=== PATIENT | female | born 1985 | race Two or more races ===

== ENCOUNTER 2023-04-26 10:39 | Inpatient (IN) | payer OTHER ==
[~2023-04-26] VITALS: Ht 157.5 cm; Wt 2.7 kg
[~2023-04-26 10:39] MED LIST: IRON240 MG PO; PRENATABS RX T1 EACH PO
== END 2023-04-29 12:04 | disposition home or self-care (01) | DRG 788 ==
LOC: EDBD → OB/GYN → LDR 10:39 → OB/GYN 15:21
PROVIDERS: ADMIT Obstetrics & Gynecology; ATTEND Obstetrics & Gynecology
PROC: 4A1HXCZ Monitoring of Products of Conception, Cardiac Rate, External Approach (ICD-10-PCS; 2023-04-26)
PROC: 10D00Z1 Extraction of Products of Conception, Low, Open Approach (ICD-10-PCS; principal; 2023-04-26 14:00)
DX: O62.1 Secondary uterine inertia (principal); O32.6XX0 Maternal care for compound presentation, not applicable or unspecified; O36.8130 Decreased fetal movements, third trimester, not applicable or unspecified; Z3A.37 37 weeks gestation of pregnancy; Z37.0 Single live birth; Z20.822 Contact with and (suspected) exposure to COVID-19

== ENCOUNTER 2023-06-10 12:05 | Outpatient (CLI) | payer OTHER | END 2023-06-10 12:10 | disposition home or self-care (01) | LOC: SONOGRAMA 12:05 | PROVIDERS: ATTEND Obstetrics & Gynecology | DX: N63.12 Unspecified lump in the right breast, upper inner quadrant (principal); N63.21 Unspecified lump in the left breast, upper outer quadrant ==

== ENCOUNTER → 2023-06-13 16:51 | Outpatient (CLI) | payer OTHER | END | disposition home or self-care (01) | LOC: LAB 16:51 | PROVIDERS: ATTEND Surgery | DX: N61.0 Mastitis without abscess (principal); N61.1 Abscess of the breast and nipple ==

== ENCOUNTER 2023-06-18 13:12 | Outpatient (CLI) | payer OTHER | END 2023-06-18 13:32 | disposition home or self-care (01) | LOC: SONOGRAMA 13:12 | PROVIDERS: ATTEND Surgery | DX: N61.1 Abscess of the breast and nipple (principal) ==

== ENCOUNTER 2023-06-20 13:56 | Outpatient (CLI) | payer OTHER | END 2023-06-20 14:07 | disposition home or self-care (01) | LOC: SONOGRAMA 13:56 | PROVIDERS: ATTEND Surgery | DX: N61.1 Abscess of the breast and nipple (principal) ==

== ENCOUNTER 2023-06-20 16:33 | Outpatient (CLI) | payer OTHER | END 2023-06-20 16:46 | disposition home or self-care (01) | LOC: LAB 16:33 | PROVIDERS: ATTEND Surgery | DX: N61.1 Abscess of the breast and nipple (principal) ==

== ENCOUNTER → 2023-07-04 15:17 | Outpatient (CLI) | payer OTHER | END | disposition home or self-care (01) | LOC: LAB 15:17 | PROVIDERS: ATTEND Surgery | DX: N61.1 Abscess of the breast and nipple (principal) ==

== ENCOUNTER 2023-07-11 13:51 | Outpatient (CLI) | payer OTHER | END 2023-07-11 14:07 | disposition home or self-care (01) | LOC: SONOGRAMA 13:51 | PROVIDERS: ATTEND Surgery | DX: N61.1 Abscess of the breast and nipple (principal) ==

== ENCOUNTER 2023-08-01 14:14 | Outpatient (CLI) | payer OTHER | END 2023-08-01 14:36 | disposition home or self-care (01) | LOC: SONOGRAMA 14:14 | PROVIDERS: ATTEND Surgery | DX: N61.0 Mastitis without abscess (principal); N61.1 Abscess of the breast and nipple ==

== ENCOUNTER 2023-08-20 12:00 | Outpatient (CLI) | payer OTHER | END 2023-08-20 12:12 | disposition home or self-care (01) | LOC: SONOGRAMA 12:00 | PROVIDERS: ATTEND Surgery | DX: N61.1 Abscess of the breast and nipple (principal); N61.0 Mastitis without abscess ==

== ENCOUNTER 2023-10-16 09:06 | Outpatient (CLI) | payer OTHER | END 2023-10-16 09:21 | disposition home or self-care (01) | LOC: SONOGRAMA 09:06 | PROVIDERS: ATTEND Surgery | DX: N61.1 Abscess of the breast and nipple (principal); N60.11 Diffuse cystic mastopathy of right breast; N60.12 Diffuse cystic mastopathy of left breast; Z88.2 Allergy status to sulfonamides ==

== ENCOUNTER 2023-12-18 08:02 | Outpatient (CLI) | payer OTHER | END 2023-12-18 08:09 | disposition home or self-care (01) | LOC: SONOGRAMA 08:02 | PROVIDERS: ATTEND Surgery | DX: N60.11 Diffuse cystic mastopathy of right breast (principal); N60.12 Diffuse cystic mastopathy of left breast; Z88.2 Allergy status to sulfonamides ==